=== PATIENT | male | born 1940 | race Caucasian/White ===

== ENCOUNTER 2017-06-12 10:51 | Day surgery (SDC) | payer MEDICARE, OTHER ==
[~2017-06-12] VITALS: Ht 172.7 cm; Wt 74.4 kg
[~2017-06-12 10:51] MED LIST: ADVAIR 250-501 EACH INH; ASPIR 8181 MG PO; ATENOLOL25 MG PO; CONSTULOSE10 GM/15 M PO; CYCLOBENZAPRINE10 MG PO; DOXYCYCLINE HY100 MG PO; HYDROXYZINE HCL25 MG PO; LACTULOSE20 GM/30 M PO; LOVASTATIN40 MG PO; PANTOPRAZOLE SO40 MG PO; PROAIR HFA8.5 GM INH
--- NOTE | 2017-06-12 12:27 | NUR ---
06/12/17 Min7 Clarissa Cha 1218: PT REPORTING 5/10 PAIN THEN PT IS ASLEEP. 1223 PT O2 SAT 96% ON 3L NC, O2 REMOVED.
--- NOTE | 2017-06-14 15:44 | OR ---
[facility] [address] [place] [address] Signed DATE OF OPERATION: 06/12/2017 SURGEON: Rogelio Jimenez MD PROCEDURE: The left posterior iliac crest bone-marrow biopsy and aspirate. PROCEDURE IN DETAIL: After explaining the risks and benefits of bone-marrow biopsy and aspiration to evaluate pancytopenia and obtaining informed written consent, the patient was brought to the endoscopy suite where a time-out was taken and the patient and the procedure were correctly identified. He was placed in the prone position. The left posterior iliac crest was prepped and draped in the usual sterile manner. Conscious sedation was supplied by CANDELARIO Pelaez with 100 mcg of intravenous fentanyl and 4 mg of intravenous midazolam. The left posterior iliac crest was anesthetized with 2 mL of 1% lidocaine and the left posterior iliac crest bone-marrow biopsy and aspirate were obtained without adverse effect. Rogelio Jimenez MD RCQ/MODL /[id number] Electronically Signed By: ROGELIO JIMENEZ MD 06/14/17 1544 PATIENT NAME: ROGELIO RO OPERATIVE REPORT DATE OF : 40 PHYSICIAN: ROGELIO JIMENEZ MD REPORT #: [id number] REPORT IS CONFIDENTIAL AND NOT TO BE RELEASED WITHOUT AUTHORIZATION
[2017-06-26] MEDS ORDERED: CHLORDIAZEPOXID25 MG PO (14:12)
[2017-06-26] MEDS ORDERED: NITROSTAT0.4 MG SL (14:15)
== END 2017-06-12 13:04 | disposition home or self-care (01) ==
LOC: DS 10:51 → OPS 10:51 → DS 12:00 → OPS 12:00
PROVIDERS: Specialist
PROC: 07DR3ZX Extraction of Iliac Bone Marrow, Percutaneous Approach, Diagnostic (ICD-10-PCS; principal; 2017-06-12 12:00)
DX: D69.6 Thrombocytopenia, unspecified (principal); K70.30 Alcoholic cirrhosis of liver without ascites; I25.2 Old myocardial infarction; F10.239 Alcohol dependence with withdrawal, unspecified; R56.9 Unspecified convulsions; F41.1 Generalized anxiety disorder; I35.0 Nonrheumatic aortic (valve) stenosis; I10 Essential (primary) hypertension; G89.29 Other chronic pain; M54.5 Low back pain; I25.119 Atherosclerotic heart disease of native coronary artery with unspecified angina pectoris; J44.9 Chronic obstructive pulmonary disease, unspecified; F32.9 Major depressive disorder, single episode, unspecified; E78.5 Hyperlipidemia, unspecified; M19.90 Unspecified osteoarthritis, unspecified site; F17.210 Nicotine dependence, cigarettes, uncomplicated; Z79.899 Other long term (current) drug therapy
CPT/HCPCS: 36415; 80053; 83615; 85025; 85384; 85610; 99152; J2250; J3010; J7040